=== PATIENT | male | born 1955 ===

== ENCOUNTER 2021-01-09 05:50 | Observation (INO) ==
[2021-01-03 10:56] LABS: Basophils # 0.1 10*3/uL (0.0-0.2); Basophils % 0.6 % (0.0-0.8); Eosinophils # 0.4 10*3/uL (0.0-0.87); Hematocrit 45.1 VOL% (42.0-52.0); Hemoglobin 14.9 GM/DL (14.0-18.0); Immature Granulocytes % 0.4 %; Immature Granulocytes Absolute 0.03 #; Lymphocytes # 1.9 10*3/uL (1.4-4.0); Lymphocytes % 22.6 % (21.2-54.2); Mean Corpuscular Volume 94.5 FL (87-102); Mean Platelet Volume 9.7 FL (9.6-12.0); Neutrophils % 60.4 % (38.7-73.9); Platelet Count 307 T/CUMM (130-400); Red Blood Count 4.77 MC/CUMM (3.8-5.5); Red Cell Distribution Width 12.7 % (9.3-17.3); White Blood Count 8.4 T/CUMM (4-12)
[2021-01-03 11:13] LABS: Osmolality,Calculated 274.8 MOS/KG (273-304); Potassium 4.4 MMOL/L (3.5-5.1)
[2021-01-09] MEDS ORDERED: propofoL 200 MG/20 ML VIAL IV ONE (06:18)
[2021-01-09] MEDS ORDERED: MIDAZOLAM 2 MG/2 ML VIAL ONE (06:18)
[2021-01-09] MEDS ORDERED: LIDOCAINE 2% 5 ML VIAL ONE (06:18)
[2021-01-09] MEDS ORDERED: ROCURONIUM 50 MG/5 ML VIAL IV ONE (06:18)
[2021-01-09] MEDS ORDERED: DEXAMETHASONE 4 MG/1 ML VIAL ONE (06:18)
[2021-01-09] MEDS ORDERED: ONDANSETRON 4 MG/2 ML VIAL ONE (06:18)
[2021-01-09] MEDS ORDERED: fentaNYL 100 MCG/2 ML VIAL ONE ×2 (06:19→08:28)
[2021-01-09] MEDS ORDERED: ceFAZolin 2,000 MG in PREMIX 1 EACH IV ONE (06:30)
[2021-01-09] MEDS ORDERED: LACTATED RINGERS 1,000 ML IV SCH (06:30)
[2021-01-09] MEDS ORDERED: PHENYLEPHRINE 1 MG/10 ML SYRINGE IV ONE (07:22)
[2021-01-09] MEDS ORDERED: ACETAMINOPHEN 1,000 MG/100 ML VIAL IV ONE (07:22)
[2021-01-09] MEDS ORDERED: ePHEDrine 50 MG/ML VIAL ONE (07:31)
[2021-01-09] MEDS ORDERED: LACTATED RINGERS 1,000 ML IV ONE (08:15)
[2021-01-09] MEDS ORDERED: ONDANSETRON 4 MG/2 ML VIAL IV PRN (12:17)
[2021-01-09] MEDS ORDERED: HYDROmorphone 2 MG/1 ML VIAL IV PRN ×2 (12:17)
[2021-01-09] MEDS ORDERED: ALBUTEROL/IPRATROPIUM 3 ML NEB RESP TX PRN (12:17)
[2021-01-09] MEDS ORDERED: ACETAMINOPHEN 325 MG TABLET PO PRN (12:17)
[2021-01-09] MEDS ORDERED: ASPIRIN 325 MG TABLET PO PRN (12:20)
[2021-01-09] MEDS: LACTATED RINGERS 1,000 ML IV SCH ×2 (14:23→20:01)
[2021-01-09] MEDS: KETOROLAC 15 MG/1 ML VIAL IV SCH ×3 (14:24→23:39)
[2021-01-09] MEDS: ceFAZolin 2,000 MG in PREMIX 1 EACH IV SCH (18:25)
[2021-01-10] MEDS: ceFAZolin 2,000 MG in PREMIX 1 EACH IV SCH (01:48)
[2021-01-10] MEDS: LACTATED RINGERS 1,000 ML IV SCH ×3 (04:30→16:53)
[2021-01-10] MEDS: KETOROLAC 15 MG/1 ML VIAL IV SCH ×4 (07:12→23:35)
[2021-01-10] MEDS: ASCORBIC ACID 500 MG TABLET PO SCH (09:29)
[2021-01-10] MEDS: MULTIVITAMIN (CENTRUM) TABLET PO SCH (09:29)
[2021-01-10] MEDS: PANTOPRAZOLE 40 MG TABLET PO SCH (09:29)
[2021-01-10] MEDS ORDERED: SKIN HEALING OINT (AQUAPHOR) 50 GM TUBE TOP PRN (09:31)
[2021-01-11] MEDS: LACTATED RINGERS 1,000 ML IV SCH ×2 (01:28→11:56)
[2021-01-11] MEDS: KETOROLAC 15 MG/1 ML VIAL IV SCH ×2 (05:40→12:30)
[2021-01-11] MEDS ORDERED: ENOXAPARIN 40 MG/0.4 ML SYRINGE SUBCUT SCH (07:30)
[2021-01-11 08:28] LABS: Basophils # 0.1 10*3/uL (0.0-0.2); Basophils % 0.5 % (0.0-0.8); Eosinophils # 0.4 10*3/uL (0.0-0.87); Eosinophils % 3.4 % (0.00-10.9); Hematocrit 38.7 VOL% (42.0-52.0); Hemoglobin 13.1 GM/DL (14.0-18.0); Immature Granulocytes % 0.3 %; Immature Granulocytes Absolute 0.03 #; Lymphocytes # 1.7 10*3/uL (1.4-4.0); Lymphocytes % 15.6 % (21.2-54.2); Mean Corpuscular HGB Conc 33.9 GM/DL (32-36); Mean Corpuscular Volume 93.9 FL (87-102); Mean Platelet Volume 9.9 FL (9.6-12.0); Monocytes % 9.9 % (1.7-12.7); Neutrophils % 70.3 % (38.7-73.9); Platelet Count 229 T/CUMM (130-400); Red Blood Count 4.12 MC/CUMM (3.8-5.5); Red Cell Distribution Width 12.9 % (9.3-17.3); White Blood Count 10.7 T/CUMM (4-12)
[2021-01-11 08:58] LABS: Calcium 8.4 MG/DL (8.5-10.1); Osmolality,Calculated 275.7 MOS/KG (273-304)
[2021-01-11] MEDS: ASCORBIC ACID 500 MG TABLET PO SCH (09:08)
[2021-01-11] MEDS: PANTOPRAZOLE 40 MG TABLET PO SCH (09:08)
[2021-01-11] MEDS: MULTIVITAMIN (CENTRUM) TABLET PO SCH (10:07)
[2021-01-11 11:31] VITALS: BP 152/73
== END 2021-01-11 16:05 | disposition home or self-care (01) ==
LOC: N.OR 05:50 → N.3E 05:50 → N.SDSINP 06:29 → N.3E 13:13 → N.OR 01-11 16:04
PROVIDERS: ADMIT Surgery; ATTEND Surgery